=== PATIENT | male | born 1950 | race Caucasian/White ===

== ENCOUNTER → 2020-02-07 | Day surgery (SDC) | payer MEDICARE, OTHER ==
[2020-02-05 15:49] VITALS: BMI 35.6
[~2020-02-07] MED LIST: LACTATED RINGERS 1,000 ML IV SCH; LIDOCAINE 1% (10MG/ML) FOR IV START INTRADERMA PRN; LIDOCAINE 1% INJ 10MG/ML (20 ML MDV) ONE; PROPOFOL 10 MG/ML 20 ML VIAL IV ONE
[2020-02-07 07:15] VITALS: RESP 16; TEMP 97.1
--- NOTE | 2020-02-07 07:53 | P.PCN ---
Date of Procedure: 02/07/20 Procedure(s) Performed: BRIEF HISTORY: Patient is a 69-year-old, pleasant, male scheduled for an upper endoscopy with CBD stent removal today. He had bile leak following that surgery 6 weeks ago and underwent an ERCP with CBD stent placement. He is doing well.. PROCEDURE PERFORMED: Esophagogastroduodenoscopy with CBD stent removal. PREOPERATIVE DIAGNOSIS: History of bile leak status post ERCP with CBD stent placement 6 weeks. IV sedation per anesthesia. PROCEDURE: After informed consent was obtained, the patient was brought into the endoscopy unit. IV sedation was administered by Anesthesia under continuous monitoring. Initially the Olympus GIF-140 video endoscope was inserted into the mouth. Esophagus intubated without any difficulty. It was gradually advanced into the stomach and duodenum and carefully examined. The bulb and the second part of the duodenum appeared normal. The previously placed because stent was noted in the second part of the duodenum. Using a snare the stent was gradually removed along with the scope. The scope at this time was withdrawn to the stomach, adequately insufflated with air, and upon careful examination, mucosa of the antrum, body, cardia and the fundus appeared normal. The scope was then withdrawn into the esophagus. Moderate size hiatal hernia noted. The GE junction was located at 39 cm from the incisors. The esophagus appeared normal. There were no erosions or ulcerations seen and the patient tolerated the procedure well. IMPRESSION: 1. CBD stent removal as described above 2. Small to moderate size hiatal hernia.. RECOMMENDATIONS: The findings of this examination were discussed with the patient as well as his family. We'll start him on a regular diet. Follow up in office as needed..
[2020-02-07 08:12] VITALS: BP 109/72; PULSE 72
== END ==
LOC: ORWHC2ENDO 06:27
PROVIDERS: ATTEND Internal Medicine Gastroenterology
DX: Z46.89 Encounter for fitting and adjustment of other specified devices (principal); K83.8 Other specified diseases of biliary tract; K44.9 Diaphragmatic hernia without obstruction or gangrene; I10 Essential (primary) hypertension; K21.9 Gastro-esophageal reflux disease without esophagitis; Z79.899 Other long term (current) drug therapy; Z79.82 Long term (current) use of aspirin
CPT/HCPCS: 43247; J2001; J2704; 44799